=== PATIENT | female | born 1990 | race Caucasian/White ===

== ENCOUNTER → 2016-12-24 | Outpatient (CLI) | payer OTHER ==
[~2016-12-24] MED LIST: COLACE100 MG PO; DERMOPLAST PAIN78 GM TOP; LAN-O-SOOTHE7 GM TOP; MOTRIN400 MG PO; MOTRIN800 MG PO; NORCO 325-5 MG1 TAB PO; PRENATAL PLUS I1 TAB PO; TYLENOL WITH CO1 TAB PO; ULTRAM50 MG PO
== END | disposition short-term general hospital (02) ==
LOC: CLOBGYN 09:14
DX: N92.6 Irregular menstruation, unspecified (principal); N93.8 Other specified abnormal uterine and vaginal bleeding; Z87.59 Personal history of other complications of pregnancy, childbirth and the puerperium

== ENCOUNTER → 2017-01-28 | Outpatient (CLI) | payer OTHER | END | disposition short-term general hospital (02) | LOC: CLOBGYN 02:43 | DX: N92.6 Irregular menstruation, unspecified (principal); N92.0 Excessive and frequent menstruation with regular cycle ==